=== PATIENT | male | born 1980 | race Caucasian/White ===

== ENCOUNTER 2017-05-19 19:00 | Emergency (ER) | payer OTHER ==
--- NOTE | 2017-05-19 19:45 | UC ---
HPI Febrile Illness - HPI Summary HPI Summary: 36 yo male with 4-5 day hx of f/c some myalgias shaking chills last pm low energy head ache which comes and goes no n/v/d no recent travel no tick bite denies rash - History of Current Complaint Chief Complaint: UCGeneralIllness Time Seen by Provider: 05/19/17 19:24 Hx Obtained From: Patient Onset/Duration: Started Days Ago Timing: Intermittent, Lasting Hours Temperature: 101.2 F Initial Severity: Mild Current Severity: Mild Pain Intensity: 3 Pain Scale Used: 0-10 Numeric Aggravating Factors: Nothing Alleviating Factors: OTC Medicine Associated Signs and Symptoms: Chills, Headache, Myalgia, Other: - neck achey - Risk Factors Pseudomonas Risk Factors: Negative Serious Bacterial Infection Risk Factors: Negative - Allergy/Home Medications Allergies/Adverse Reactions: Allergies Allergy/AdvReac Type Severity Reaction Status Date / Time Amoxicillin [From Augmentin] Allergy Unknown Verified 05/19/17 19:22 Reaction Details Clavulanic Acid Allergy Unknown Verified 05/19/17 19:22 [From Augmentin] Reaction Details Pertussis Immune Globulin Allergy Unknown Verified 05/19/17 19:22 Reaction Details Home Medications: Home Medications Acetaminophen [Tylenol] 650 mg 05/19/17 [History] Ibuprofen [Advil] 400 mg PO 05/19/17 [History] PMH/Surg Hx/FS Hx/Imm Hx Previously Healthy: Yes Cardiovascular History: Denies: Hx Hypertension Infectious Disease History: No Infectious Disease History: Denies: Traveled Outside the [place] in Last 30 Days - Family History Known Family History: Positive: Hypertension - Social History Alcohol Use: Daily Substance Use Type: Reports: None Smoking Status (MU): Never Smoked Tobacco Review of Systems Constitutional: Fever, Chills, Fatigue Skin: Negative Eyes: Negative ENT: Negative Respiratory: Negative Cardiovascular: Negative Gastrointestinal: Negative Genitourinary: Negative Motor: Negative Neurovascular: Negative Musculoskeletal: Myalgia Neurological: Headache Psychological: Negative All Other Systems Reviewed And Are Negative: Yes Physical Exam Triage Information Reviewed: Yes Appearance: Well-Appearing - NON TOXIC, No Pain Distress, Well-Nourished Vital Signs: Initial Vital Signs Temp 101.2 F 05/19/17 19:16 Pulse 87 05/19/17 19:16 Resp 16 05/19/17 19:16 BP 129/79 05/19/17 19:16 Pulse Ox 100 07/11/17 19:16 Eye Exam: Normal Eyes: Positive: Conjunctiva Clear ENT: Positive: Hearing grossly normal. Negative: Nasal congestion, Nasal drainage, Trismus, Muffled/hoarse voice Dental: Negative: Abscess @ Neck: Positive: Supple, Nontender, Enlarged Nodes @ - a few small ant cervical nodes Respiratory: Positive: Lungs clear, Normal breath sounds, No respiratory distress, No accessory muscle use Cardiovascular: Positive: RRR, Murmur:Sys:Grade _?_/ - 3/6 blowing murmur left lower sternal border. Negative: No Murmur Abdomen Description: Positive: Nontender, No Organomegaly, Soft. Negative: CVA Tenderness (R), CVA Tenderness (L) Musculoskeletal: Positive: ROM Intact, No Edema Neurological Exam: Normal Neurological: Positive: Alert Psychological Exam: Normal Skin Exam: Normal Course/Dx - Course Assessment/Plan: patient has never been told he has a murmur. had PE less than a yr ago. I suggest he go to the ER for a higher lever of care. Declined EMS transfer. D/W Lary CAMACHO. HE will go there by POV - Diagnoses Clinic Provider Diagnoses: fever of uncertain cause. heart murmur Discharge - Discharge Plan Condition: Fair Disposition: AGAINST MEDICAL ADVICE
[2017-05-19 19:51] VITALS: BP 125/76
== END 2017-05-19 20:03 | disposition left against medical advice (07) ==
LOC: UCEAST 19:00
DX: R50.9 Fever, unspecified (principal); R01.1 Cardiac murmur, unspecified; Z86.711 Personal history of pulmonary embolism
CPT/HCPCS: 99202; G0463

== ENCOUNTER 2017-05-19 20:17 | Emergency (ER) | payer OTHER ==
[2017-05-19] MEDS ORDERED: Ketorolac INJ* 30 MG/ML 1 ML VIAL IV PUSH ONE (23:28)
[2017-05-19] MEDS ORDERED: NS 0.9% 1000 ML* 1,000 ML IV ONE (23:32)
[2017-05-20 00:42] LABS: Hematocrit 40 % (42-52); Hemoglobin 13.7 g/dl (14.0-18.0); Mean Corpuscular HGB Conc 34 g/dl (31-36); Mean Corpuscular Hemoglobin 29 pg (27-31); Mean Corpuscular Volume 86 fL (80-94); Mean Platelet Volume 10 um3 (7.4-10.4); Red Blood Count 4.65 10^6/ul (4.0-5.4); Red Cell Distribution Width 13 % (10.5-15)
[2017-05-20] MEDS ORDERED: Acetaminophen TAB* 325 MG PO ONE (00:45)
[2017-05-20 00:57] LABS: Albumin 4.1 g/dL (3.2-5.2); BUN/Creatinine Ratio 8.7 (8-20); C Reactive Protein 76.45 mg/L (< 5.00); Calcium 9.1 mg/dL (8.6-10.3); EGFR African American 106.3 (>60); EGFR Non-African American 82.7 (>60); Globulin 2.9 g/dL (2-4); Potassium 3.6 mmol/L (3.5-5.0); Total Bilirubin 0.6 mg/dL (0.2-1.0)
[2017-05-20 00:58] LABS: Troponin I 0.01 ng/mL (<0.04)
[2017-05-20 01:38] LABS: Erythrocyte Sed Rate 19 mm/Hr (0-14)
[2017-05-20 01:55] LABS: Urine Bilirubin Negative (Negative); Urine Glucose Negative (Negative); Urine Nitrite Negative (Negative)
--- NOTE | 2017-05-20 02:04 | ED ---
HPI Febrile Illness - HPI Summary HPI Summary: Patient presents from [facility] with fevers x 5 days. He was sent here for a workup and for a heart murmur heard on exam. He notes to fevers, neck pain at the base of the neck which does not radiate, sweats, chills and mild aches. He has been taking tylenol and ibuprofen with mild relief of fevers. Denies urinary symptoms, back pain, N/V/C/D, cough, SOB or chest pain. Notes to a ELLIS, but denies sensitivity to light. No rash, tick bites or recent illness. Denies travel or sick contacts. Otherwise healthy. Immunizations UTD. - History of Current Complaint Chief Complaint: EDFever Time Seen by Provider: 05/19/17 23:12 Hx Obtained From: Patient Onset/Duration: Started Days Ago - 5 days ago Timing: Constant Temperature: 102.3 F Initial Severity: Moderate Current Severity: Moderate Pain Intensity: 1 Pain Scale Used: 0-10 Numeric Aggravating Factors: Nothing Alleviating Factors: Nothing Associated Signs and Symptoms: Headache, Stiff Neck - Risk Factors Pseudomonas Risk Factors: Negative Serious Bacterial Infection Risk Factors: Negative - Allergy/Home Medications Allergies/Adverse Reactions: Allergies Allergy/AdvReac Type Severity Reaction Status Date / Time Amoxicillin [From Augmentin] Allergy Unknown Verified 05/19/17 19:22 Reaction Details Clavulanic Acid Allergy Unknown Verified 05/19/17 19:22 [From Augmentin] Reaction Details Pertussis Immune Globulin Allergy Unknown Verified 05/19/17 19:22 Reaction Details PMH/Surg Hx/FS Hx/Imm Hx Previously Healthy: Yes Cardiovascular History: Denies: Hx Hypertension - Immunization History Hx Pertussis Vaccination: No Immunizations Up to Date: Unable to Obtain/Confirm Infectious Disease History: Yes Infectious Disease History: Denies: Traveled Outside the [place] in Last 30 Days - Family History Known Family History: Positive: Hypertension - Social History Occupation: Employed Full-time Lives: With Family Alcohol Use: Daily Hx Substance Use: No Substance Use Type: Reports: None Hx Tobacco Use: No Smoking Status (MU): Never Smoked Tobacco Review of Systems Positive: Fever, Chills, Fatigue, Skin Diaphoresis Eyes: Negative Cardiovascular: Negative Respiratory: Negative Positive: no symptoms reported, see HPI Positive: Arthralgia, Myalgia Skin: Negative Positive: Headache Psychological: Normal All Other Systems Reviewed And Are Negative: Yes Physical Exam Triage Information Reviewed: Yes Vital Signs On Initial Exam: Initial Vitals Temp Pulse Resp BP Pulse Ox 100.1 F 83 16 119/68 99 05/19/17 20:41 05/19/17 20:41 05/19/17 20:41 05/19/17 20:41 05/19/17 20:41 Vital Signs Reviewed: Yes Appearance: Positive: Well-Appearing, No Pain Distress, Well-Nourished Skin: Positive: Warm, Skin Color Reflects Adequate Perfusion Head/Face: Positive: Normal Head/Face Inspection Eyes: Positive: Normal, LEIF, Conjunctiva Clear Neck: Positive: Supple, No Lymphadenopathy Respiratory/Lung Sounds: Positive: Clear to Auscultation, Breath Sounds Present Cardiovascular: Positive: Pulses are Symmetrical in both Upper and Lower Extremities, IRR - slight murmur heard - no thrill Musculoskeletal: Positive: Normal, Strength/ROM Intact Neurological: Positive: Sensory/Motor Intact, Alert, Oriented to Person Place, Time, Facial Symmetry Psychiatric: Positive: Normal AVPU Assessment: Alert - Tyler Coma Scale Best Eye Response: 4 - Spontaneous Best Motor Response: 6 - Obeys Commands Best Verbal Response: 5 - Oriented Coma Scale Total: 15 Diagnostics - Vital Signs Vital Signs Temp Pulse Resp BP Pulse Ox 05/20/17 01:40 116/64 05/20/17 01:27 88 98 05/20/17 01:00 85 122/74 98 05/20/17 00:43 102.7 F 05/20/17 00:30 86 122/65 98 05/20/17 00:05 92 99 05/19/17 23:30 91 126/69 98 05/19/17 23:11 87 99 05/19/17 23:09 102.1 F 84 16 123/70 98 05/19/17 20:41 100.1 F 83 16 119/68 99 - Laboratory Lab Results: Lab Results 05/20/17 05/20/17 05/20/17 Range/Units 00:20 00:20 00:20 WBC 7.0 (3.5-10.8) 10^3/ul RBC 4.65 (4.0-5.4) 10^6/ul Hgb 13.7 L (14.0-18.0) g/dl Hct 40 L (42-52) % MCV 86 (80-94) fL MCH 29 (27-31) pg MCHC 34 (31-36) g/dl RDW 13 (10.5-15) % Plt Count 115 L (150-450) 10^3/ul MPV 10 (7.4-10.4) um3 Neut % (Auto) 75.9 (38-83) % Lymph % (Auto) 12.3 L (25-47) % [place] % (Auto) 11.1 H (1-9) % Eos % (Auto) 0.3 (0-6) % Baso % (Auto) 0.4 (0-2) % Absolute Neuts (auto) 5.4 (1.5-7.7) 10^3/ul Absolute Lymphs (auto) 0.9 L (1.0-4.8) 10^3/ul Absolute Monos (auto) 0.8 (0-0.8) 10^3/ul Absolute Eos (auto) 0 (0-0.6) 10^3/ul Absolute Basos (auto) 0 (0-0.2) 10^3/ul Absolute Nucleated RBC 0 10^3/ul Nucleated RBC % 0 ESR 19 H (0-14) mm/Hr INR (Anticoag Therapy) 1.03 (0.89-1.11) APTT 28.0 (26.0-36.3) seconds Sodium 137 (133-145) mmol/L Potassium 3.6 (3.5-5.0) mmol/L Chloride 103 (101-111) mmol/L Carbon Dioxide 27 (22-32) mmol/L Anion Gap 7 (2-11) mmol/L BUN 9 (6-24) mg/dL Creatinine 1.03 (0.67-1.17) mg/dL Est GFR ( Amer) 106.3 (>60) Est GFR (Non-Af Amer) 82.7 (>60) BUN/Creatinine Ratio 8.7 (8-20) Glucose 123 H (70-100) mg/dL Lactic Acid (0.5-2.0) mmol/L Calcium 9.1 (8.6-10.3) mg/dL Total Bilirubin 0.60 (0.2-1.0) mg/dL AST 35 (13-39) U/L ALT 54 H (7-52) U/L Alkaline Phosphatase 75 (34-104) U/L Total Creatine Kinase 75 (10-223) U/L Troponin I 0.01 (<0.04) ng/mL C-Reactive Protein 76.45 H (< 5.00) mg/L B-Natriuretic Peptide ( - 100) pg/mL Total Protein 7.0 (6.4-8.9) g/dL Albumin 4.1 (3.2-5.2) g/dL Globulin 2.9 (2-4) g/dL Albumin/Globulin Ratio 1.4 (1-3) Urine Color Urine Appearance Urine pH (5-9) Ur Specific Harlan (1.010-1.030) Urine Protein (Negative) Urine Ketones (Negative) Urine Blood (Negative) Urine Nitrate (Negative) Urine Bilirubin (Negative) Urine Urobilinogen (Negative) Ur Leukocyte Esterase (Negative) Urine Glucose (Negative) 05/20/17 05/20/17 05/20/17 Range/Units 00:20 00:20 01:40 WBC (3.5-10.8) 10^3/ul RBC (4.0-5.4) 10^6/ul Hgb (14.0-18.0) g/dl Hct (42-52) % MCV (80-94) fL MCH (27-31) pg MCHC (31-36) g/dl RDW (10.5-15) % Plt Count (150-450) 10^3/ul MPV (7.4-10.4) um3 Neut % (Auto) (38-83) % Lymph % (Auto) (25-47) % [place] % (Auto) (1-9) % Eos % (Auto) (0-6) % Baso % (Auto) (0-2) % Absolute Neuts (auto) (1.5-7.7) 10^3/ul Absolute Lymphs (auto) (1.0-4.8) 10^3/ul Absolute Monos (auto) (0-0.8) 10^3/ul Absolute Eos (auto) (0-0.6) 10^3/ul Absolute Basos (auto) (0-0.2) 10^3/ul Absolute Nucleated RBC 10^3/ul Nucleated RBC % ESR (0-14) mm/Hr INR (Anticoag Therapy) (0.89-1.11) APTT (26.0-36.3) seconds Sodium (133-145) mmol/L Potassium (3.5-5.0) mmol/L Chloride (101-111) mmol/L Carbon Dioxide (22-32) mmol/L Anion Gap (2-11) mmol/L BUN (6-24) mg/dL Creatinine (0.67-1.17) mg/dL Est GFR ( Amer) (>60) Est GFR (Non-Af Amer) (>60) BUN/Creatinine Ratio (8-20) Glucose (70-100) mg/dL Lactic Acid 0.7 (0.5-2.0) mmol/L Calcium (8.6-10.3) mg/dL Total Bilirubin (0.2-1.0) mg/dL AST (13-39) U/L ALT (7-52) U/L Alkaline Phosphatase (34-104) U/L Total Creatine Kinase (10-223) U/L Troponin I (<0.04) ng/mL C-Reactive Protein (< 5.00) mg/L B-Natriuretic Peptide 64 ( - 100) pg/mL Total Protein (6.4-8.9) g/dL Albumin (3.2-5.2) g/dL Globulin (2-4) g/dL Albumin/Globulin Ratio (1-3) Urine Color Yellow Urine Appearance Clear Urine pH 6.0 (5-9) Ur Specific [place]lan 1.016 (1.010-1.030) Urine Protein Negative (Negative) Urine Ketones Trace H (Negative) Urine Blood Negative (Negative) Urine Nitrate Negative (Negative) Urine Bilirubin Negative (Negative) Urine Urobilinogen Negative (Negative) Ur Leukocyte Esterase Negative (Negative) Urine Glucose Negative (Negative) Result Diagrams: 05/20/17 00:20 05/20/17 00:20 Lab Statement: Any lab studies that have been ordered have been reviewed, and results considered in the medical decision making process. Course/Dx - Course Course Of Treatment: Tylenol with relief of fevers and chills and sweats. EKG WNL. Chest xray negative. UA ok. Labs WNL. Diagnosed with viral illness and return precautions given. Patinet agrees to see Dr. Joseph this week. Patient had been told he had "something strange with his pulmonary artery" but denies other symptoms. - Febrile Illness Differential Diagnoses: Endocarditis, Fever of Unknown Origin, Meningitis, Pneumonia, Viremia - Diagnoses Provider Diagnoses: Fever Discharge - Discharge Plan Condition: Stable Disposition: HOME Patient Education Materials: Fever in Adults (ED), Viral Syndrome (ED) Referrals: De Joseph MD [Primary Care Provider] - Additional Instructions: Follow up with PCP this week Tylenol 650mg three times daily or Ibuprofen 600mg three times daily You may use both of these and alternate for fevers If you do not feel better within 24-48 hours, you need to return to the ED or see your PCP Rest and drink plenty of fluids, if you feel you cannot drink enough fluids, supplement with Gatorade Worsening headache, sensitivity to light, neck stiffness or fevers despite medication - return to the ED.
[2017-05-20 02:15] VITALS: BP 108/80
--- NOTE | 2017-05-20 07:49 | RAD ---
HISTORY: Fever, sepsis, heart murmur COMPARISONS: None VIEWS: 4: Frontal dual-energy and lateral views of the chest. FINDINGS: CARDIOMEDIASTINAL SILHOUETTE: The cardiomediastinal silhouette is normal. RAMSEY: The ramsey are normal. PLEURA: The costophrenic angles are sharp. No pleural abnormalities are noted. LUNG PARENCHYMA: The lungs are clear. ABDOMEN: The upper abdomen is clear. There is no subphrenic gas. BONES AND SOFT TISSUES: No bone or soft tissue abnormalities are noted. OTHER: None. IMPRESSION: NO ACTIVE CARDIOPULMONARY DISEASE.
== END 2017-05-20 02:15 | disposition home or self-care (01) ==
LOC: ED 20:17
DX: R50.9 Fever, unspecified (principal); R51 Headache; M43.6 Torticollis; R53.83 Other fatigue; R01.1 Cardiac murmur, unspecified; Z88.1 Allergy status to other antibiotic agents
CPT/HCPCS: 36415; 71020; 80053; 81003; 82550; 83605; 83880; 84484; 85025; 85610; 85652; 85730; 86140; 87040; 93005; 96361; 96374; 99283; A9270-GY